=== PATIENT | male | born 1945 | race Caucasian/White ===

== ENCOUNTER 2024-12-01 09:53 | Emergency (ER) | payer MEDICARE, SELFPAY ==
[2024-12-01 09:57] VITALS: BP 161/67; PULSE 61; RESP 16; TEMP 36.4; O2SAT 98; BMI 23.0
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
--- NOTE | 2024-12-01 10:07 | DI.CT.S_ITS ---
PROCEDURE: CT FACIAL BONES WO CON INDICATIONS: fall hit head/thinners/r/o L orbital fx TECHNIQUE: Noncontrast 2.5 mm thick axial images acquired from the mandible through the frontal sinuses, with coronal and sagittal reformatting. For radiation dose reduction, the following was used: automated exposure control, adjustment of mA and/or kV according to patient size. COMPARISON: None. FINDINGS: Maxillofacial Bones: The zygomaticomaxillary complex is intact. The pterygoid plates and skull base are unremarkable. No evidence of fracture or lytic lesion. Degenerative disc disease and arthropathy in the cervical spine associated severe central stenosis C5-6 Mandible: The mandible is intact without fracture. Unremarkable temporomandibular articulation. Dentition: Unremarkable mandibular and maxillary dentition. Soft tissues: No maxillofacial soft tissue swelling. No radiopaque foreign bodies. Orbits: The osseous orbits, globes and ocular muscles unremarkable. Sinuses and Mastoid: The visualized portion of the paranasal sinuses and mastoids are normal. No air-fluid levels or wall fractures. The nasal vault is unremarkable. IMPRESSION: No evidence of fracture. Left orbit is intact. 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 on 12/01/2024 at 9:47
--- NOTE | 2024-12-01 10:07 | DI.CT.S_ITS ---
PROCEDURE: CT HEAD/BRAIN WO CON INDICATIONS: fall hit head on thinners TECHNIQUE: Noncontrast 4.5 mm thick angled axial sections acquired from the foramen magnum to the vertex, with coronal and sagittal reformats. For radiation dose reduction, the following was used: automated exposure control, adjustment of mA and/or kV according to patient size. COMPARISON: None. FINDINGS: Image quality: Diagnostic. CSF spaces: Basal cisterns are patent. No extra-axial fluid collections. Ventricles are normal in size and shape. Brain: No midline shift. No intracranial mass effect or hemorrhage. Yepez- white matter interface is normal. Skull and face: Calvarium and visualized facial bones are intact, without suspicious lesions. Sinuses: Visualized sinuses and mastoids are clear. IMPRESSION: No acute intracranial pathology. Approved by: Alistair Kaur M.D. on 12/01/2024 at 9:37
--- NOTE | 2024-12-01 11:12 | DI.RAD.S_ITS ---
PROCEDURE: XR CHEST 2V INDICATIONS: trauma TECHNIQUE: 2 views of the chest were acquired. COMPARISON: None. FINDINGS: Surgical changes and devices: None. Lungs and pleura: Lungs are clear. No pleural effusions or pneumothorax. Mediastinum: Mediastinal contours are normal. Heart size is normal. Bones and chest wall: No suspicious bony abnormalities. Soft tissues appear unremarkable. IMPRESSION: No acute cardiopulmonary abnormality is seen. Approved by: Alistair Kaur M.D. on 12/01/2024 at 11:09
--- NOTE | 2024-12-01 11:12 | DI.RAD.S_ITS ---
PROCEDURE: XR SHOULDER LT MIN 2V INDICATIONS: trauma TECHNIQUE: 3 views of the shoulder were acquired. COMPARISON: None. FINDINGS: Bones: No fractures or dislocations. No suspicious bony lesions. Visualized ribs appear intact. Glenohumeral arthritic changes Soft tissues: No suspicious soft tissue calcifications. IMPRESSION: Arthritic changes without fracture or dislocation Approved by: Alistair Kaur M.D. on 12/01/2024 at 11:10
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
[2024-12-01] MEDS: TET,DIPH,PERTUSS(ACELL),VAC/PF 0.5 ML SYRINGE IM (11:28)
[2024-12-01] MEDS: BACITRACIN OINT 0.9 GM PCKT 1 APPLIC TOP (12:58)
== END 2024-12-01 13:00 | disposition home or self-care (01) ==
PROVIDERS: Emergency Provider Family Medicine
DX: S01.81XA Laceration without foreign body of other part of head, initial encounter (principal); V18.0XXA Pedal cycle driver injured in noncollision transport accident in nontraffic accident, initial encounter; Y93.55 Activity, bike riding; Z79.01 Long term (current) use of anticoagulants; Z23 Encounter for immunization
CPT/HCPCS: 12011; 70450; 70486; 71046; 72125; 73030; 90471; 99284; 90715